=== PATIENT | female | born 1950 | race Hispanic/Latino ===

== ENCOUNTER 2025-01-20 12:06 | Emergency (ER) | payer MEDICARE, OTHER ==
[~2025-01-20] VITALS: Ht 162.6 cm; Wt 92.2 kg
[~2025-01-20 12:06] MED LIST: ATENOLOL50 MG PO; ATORVASTATIN CA40 MG PO; CYMBALTA60 MG PO; GABAPENTIN300 MG PO; LEVOTHYROXINE50 MCG PO; METFORMIN HCL1000 MG PO; NEXIUM20 MG PO; PROAIR HFA INH8.5 GM INH; SYMBICORT 16010.2 GM INH; ULTRAM50 MG PO; ZESTRIL20 MG PO
[2025-01-20] MEDS ORDERED: IOPAMIDOL 370 MG/ML 100 ML INFUS..BTL INJ ONE (12:20)
[2025-01-20] MEDS: KETOROLAC TROMETHAMINE 30 MG/ML VIAL IV STA (12:46)
[2025-01-20] MEDS ORDERED: METHOCARBAMOL750 MG PO (14:28)
[2025-01-20] MEDS: Morphine 4mg INJECTION 4 MG/ML INJ IV ONE (14:32)
[2025-01-20 14:39] VITALS: BP 136/84; PULSE 78; RESP 15
[2025-01-20 14:53] VITALS: PULSE 81; RESP 16; TEMP 98; O2SAT 93
== END 2025-01-20 15:00 | disposition home or self-care (01) ==
LOC: FSED 12:11
DX: R10.31 Right lower quadrant pain (principal); E11.65 Type 2 diabetes mellitus with hyperglycemia; D75.89 Other specified diseases of blood and blood-forming organs; D72.829 Elevated white blood cell count, unspecified; I10 Essential (primary) hypertension; J44.9 Chronic obstructive pulmonary disease, unspecified; E78.5 Hyperlipidemia, unspecified; E03.9 Hypothyroidism, unspecified; I25.10 Atherosclerotic heart disease of native coronary artery without angina pectoris; R94.31 Abnormal electrocardiogram [ECG] [EKG]; F17.210 Nicotine dependence, cigarettes, uncomplicated
CPT/HCPCS: 74177; 80053; 81003; 84484; 85025; 93005; 99284; J1885; J2270; Q9967

== ENCOUNTER 2025-05-10 10:48 | Emergency (ER) | payer MEDICARE, OTHER ==
[~2025-05-10] VITALS: Ht 147.3 cm; Wt 89.4 kg
[~2025-05-10 10:48] MED LIST changes: +METHOCARBAMOL750 MG PO
[2025-05-10] MEDS ORDERED: TYLENOL325 MG PO (11:21)
[2025-05-10] MEDS ORDERED: METHOCARBAMOL750 MG PO (11:21)
[2025-05-10] MEDS ORDERED: IBUPROFEN600 MG PO (11:21)
[2025-05-10] MEDS ORDERED: KETOROLAC TROMETHAMINE 30 MG/ML VIAL ONE (11:26)
[2025-05-10] MEDS ORDERED: ACETAMINOPHEN 325 MG TAB ONE (11:26)
[2025-05-10] MEDS: KETOROLAC TROMETHAMINE 30 MG/ML VIAL IM ONE (11:38)
[2025-05-10] MEDS: ACETAMINOPHEN 325 MG TAB PO ONE (11:38)
[2025-05-10 12:43] VITALS: PULSE 72; RESP 18; TEMP 97.3; O2SAT 95
[2025-05-11] MEDS ORDERED: JARDIANCE25 MG (11:04)
[2025-05-11] MEDS ORDERED: TRICOR145 MG PO (11:04)
[2025-05-11] MEDS ORDERED: METOPROLOL SUCC25 MG PO (11:04)
[2025-05-11] MEDS ORDERED: TOUJEO SOL300 UNIT/1 SQ (11:04)
[2025-05-11] MEDS ORDERED: LOSARTAN POTASS25 MG PO (11:04)
[2025-05-11] MEDS ORDERED: ONE DAILY FOR1 EAC3 (11:04)
[2025-05-11] MEDS ORDERED: FERROUS SULFAT324 MG PO (11:04)
[2025-05-11] MEDS ORDERED: CLOPIDOGREL75 MG PO (11:04)
[2025-05-11] MEDS ORDERED: DEXILANT60 MG (11:04)
[2025-05-11] MEDS ORDERED: TRULICITY3 MG/0.5 M (11:04)
[2025-05-11] MEDS ORDERED: ASPIRIN EC81 MG PO (11:04)
[2025-05-11] MEDS ORDERED: LYRICA75 MG PO (11:04)
[2025-05-11] MEDS ORDERED: ISOSORBIDE MONO30 MG PO (11:04)
== END 2025-05-10 12:43 | disposition home or self-care (01) ==
LOC: FSED 10:59
DX: R51.9 Headache, unspecified (principal); M54.2 Cervicalgia; M54.12 Radiculopathy, cervical region; M47.812 Spondylosis without myelopathy or radiculopathy, cervical region; I10 Essential (primary) hypertension; E11.9 Type 2 diabetes mellitus without complications; J44.9 Chronic obstructive pulmonary disease, unspecified; E03.9 Hypothyroidism, unspecified; I25.10 Atherosclerotic heart disease of native coronary artery without angina pectoris; E78.5 Hyperlipidemia, unspecified; D64.9 Anemia, unspecified; M54.9 Dorsalgia, unspecified; G89.29 Other chronic pain; I25.2 Old myocardial infarction; Z96.652 Presence of left artificial knee joint
CPT/HCPCS: 72125; 81003; 96372; 99284; J1885

== ENCOUNTER 2025-05-27 06:08 | Day surgery (SDC) | payer MEDICARE ==
[2025-05-21 14:46] LABS: BASOPHILS % 0.6 % (0.0-1.0); EOSINOPHILS % 1.4 % (0.0-6.0); LYMPHOCYTES % 27.8 % (18.0-39.1); MONOCYTES % 5.4 % (4.4-11.3); NEUTROPHILS % 64.3 % (38.7-80.0); RED CELL DISTRIBUTION WIDTH 13.2 % (11.7-14.4)
[2025-05-21 14:59] LABS: INR 1.01
[2025-05-21 15:08] LABS: CHOL/HDL RATIO 4.2 (3.0-3.6); EST GLOMERULAR FILTRATION RATE 60.0 ML/MIN (>=60); LDL CHOLESTEROL 62.0 MG/DL (60-130)
[2025-05-27] VITALS (15 sets, daily range): BP systolic 92–143; BP diastolic 52–79; PULSE 55–72; RESP 10–17; TEMP 97.5; O2SAT 93–100
[~2025-05-27] VITALS: Ht 147.3 cm; Wt 89.4 kg
[~2025-05-27 06:08] MED LIST changes: +ASPIRIN EC81 MG PO; +CLOPIDOGREL75 MG PO; +DEXILANT60 MG; +FERROUS SULFAT324 MG PO; +IBUPROFEN600 MG PO; +ISOSORBIDE MONO30 MG PO; +JARDIANCE25 MG; +LOSARTAN POTASS25 MG PO; +LYRICA75 MG PO; +METOPROLOL SUCC25 MG PO; +MOUNJARO2.5 MG/0.5; +ONE DAILY FOR1 EAC3; +TOUJEO SOL300 UNIT/1 SQ; +TRICOR145 MG PO; +TRULICITY3 MG/0.5 M; +TYLENOL325 MG PO
[2025-05-27] MEDS ORDERED: IOPAMIDOL 370 MG/ML 100 ML INFUS..BTL INJ ONE (06:38)
[2025-05-27] MEDS ORDERED: LIDOCAINE HCL 1% LOCAL INJ 20 ML VIAL ONE ×2 (06:38→07:35)
[2025-05-27] MEDS ORDERED: HEPARIN SOD/SOD CHLORIDE 2,000 ML ONE (06:38)
[2025-05-27] MEDS ORDERED: SODIUM CHLORIDE 0.9% 1000ML 0 ML ONE (07:06)
[2025-05-27] MEDS ORDERED: VERAPAMIL HCL 2.5 MG/ML 2 ML VIAL ONE (07:10)
[2025-05-27] MEDS ORDERED: SODIUM CHLORIDE 0.9% 1000ML 1,000 ML ONE (07:10)
[2025-05-27] MEDS ORDERED: MIDAZOLAM HCL 2 MG/2 ML VIAL ONE (07:20)
[2025-05-27] MEDS ORDERED: FENTANYL CITRATE/PF 100MCG/2 ML INJ ONE (07:20)
[2025-05-27] MEDS ORDERED: LIDOCAINE HCL 2% LOCAL 20 ML VIAL ONE (07:36)
[2025-05-27] MEDS ORDERED: HEPARIN SOD (PORCINE) 1000 UNIT/ML 30ML ONE (07:51)
[2025-05-27] MEDS: CLOPIDOGREL BISULFATE 75 MG TAB ONE (08:29)
== END 2025-05-27 13:00 | disposition home or self-care (01) ==
LOC: CATH LAB 06:08
PROVIDERS: ATTEND Internal Medicine Cardiovascular Disease
DX: E11.51 Type 2 diabetes mellitus with diabetic peripheral angiopathy without gangrene (principal); I70.213 Atherosclerosis of native arteries of extremities with intermittent claudication, bilateral legs; I25.810 Atherosclerosis of coronary artery bypass graft(s) without angina pectoris; I10 Essential (primary) hypertension; E78.00 Pure hypercholesterolemia, unspecified; M19.90 Unspecified osteoarthritis, unspecified site; F32.A Depression, unspecified; Z68.38 Body mass index [BMI] 38.0-38.9, adult; Z79.4 Long term (current) use of insulin; Z79.84 Long term (current) use of oral hypoglycemic drugs; Z79.85 Long-term (current) use of injectable non-insulin antidiabetic drugs; Z79.82 Long term (current) use of aspirin; Z79.02 Long term (current) use of antithrombotics/antiplatelets; Z79.890 Hormone replacement therapy; Z79.899 Other long term (current) drug therapy; Z01.810 Encounter for preprocedural cardiovascular examination; Z01.812 Encounter for preprocedural laboratory examination
CPT/HCPCS: 36415 ×2; 37224; 71046; 75625; 75710; 76937; 80048; 80061; 82948; 85025; 85610; 85730; 93005; C1760; C1769 ×2; C1887; C2623; J1644; J2003 ×2; J2250; J3010; J7030; Q9967; 36246; 99152; 99153